=== PATIENT | female | born 1935 | race Caucasian/White ===

== ENCOUNTER → 2018-03-21 | Outpatient (CLI) | payer MEDICARE ==
[~2018-03-21] MED LIST: ALLOPURINOL100 MG PO; AMLODIPINE BESY10 MG PO; ATENOLOL50 MG PO; Aspirin PO; CENTRUM SILVER1 EAC1; DAILY VITAMIN1 EAC3 PO; ECOTRIN325 MG PO; FISH OIL + VIT1 EACH PO; FUROSEMIDE40 MG PO; GLIMEPIRIDE2 MG PO; I-CAPS AREDS S1 EACH; ICAPS TABLET1 EACH PO; ISOSORBIDE MONO30 MG PO; ISOSORBIDE MONO60 M1 PO; KRILL OIL500 MG PO; LIPITOR40 MG PO; MULTI-VITAMIN1 EACH PO; NORCO 5-325 TA1 EACH PO; SPIRONOLACTONE25 MG PO
--- NOTE | 2018-03-21 13:34 | Diagnostic Imaging Report ---
PROCEDURE: CT CHEST WITHOUT CONTRAST CT scan of the chest WITHOUT intravenous contrast, using standard protocol. TECHNIQUE: The chest was scanned utilizing a multidetector helical scanner from the apex to the level of the adrenal glands. No IV contrast was administered because per physician request). Coronal and sagittal multiplanar reformations were obtained. Total DLP: 520.42 COMPARISON: [facility], CT, CT ABDOMEN/PELVIS WO, 11/11/2015, 10:05. [facility], CT, CT CHEST WO, 09/19/2017, 11:37. INDICATIONS: Multiple pulmonary nodules on prior examination. Follow up. FINDINGS: Lines/tubes: None. Lungs and Airways: A 9 mm noncalcified nodule in the posterior left lung base on image 92 series 3 is new since the prior examination. A 3.5 mm noncalcified nodule in the left upper lobe anteriorly on image 62 history also appears new. A posterior right lower lobe noncalcified nodule previously measuring 1.2 x 1.2 cm on image 52 series 3 currently measures 1.1 x 1.2 cm on image 55 series 3, stable. Previous described bilateral subcentimeter pulmonary nodules are stable. Right middle lobe and lingular subsegmental atelectasis versus scarring. Pleura: The pleural spaces are clear. Heart and mediastinum: 2.1 cm low attenuation nodule in the left lobe of the thyroid. Other prominent mediastinal lymph nodes appear stable. The main pulmonary artery measures 3.8 cm, enlarged. Multivessel coronary artery calcifications.. Soft tissues: Normal. Abdomen: Limited views of the upper abdomen show a large low attenuation mass spanning segments 4A and IVb, measuring approximately 11 x 8.7 cm on image 90 series 2; it contains foci of calcification. It previously measured 8.5 x 7.3 cm on image 84 series 2. Atherosclerotic calcifications of the abdominal aorta and visualized branches.. The adrenal glands are normal. Bones: Multilevel advanced degenerative disc disease and spondylosis of the imaged thoracolumbar spine. IMPRESSION: 1. Interval increase in size of the previously described hepatic mass not further characterized due to lack of contrast; it is highly concerning for malignant neoplasm. Recommend further evaluation with CT or MRI of abdomen without and with contrast liver mass protocol. 2. Two new pulmonary nodules in the left lung the largest measuring 9 mm; metastatic disease is within differential diagnosis. 3. Stable bilateral pulmonary nodules the largest measuring 1.2 cm in the right lower lobe. Flora Cano M.D. Dictated by: Flora Cano M.D. on 03/21/2018 at 13:37 Electronically approved by: Flora Cano M.D. on 03/21/2018 at 13:37
== END | disposition home or self-care (01) ==
LOC: CT 12:09
PROVIDERS: ATTEND Internal Medicine Pulmonary Disease
DX: J98.4 Other disorders of lung (principal); R91.8 Other nonspecific abnormal finding of lung field
CPT/HCPCS: 71250

== ENCOUNTER 2018-11-29 07:58 | Inpatient (IN) | payer MEDICARE ==
[~2018-11-29] VITALS: Ht 165.1 cm; Wt 78.0 kg
--- OUTSIDE RECORDS SUMMARY | 2018-11-29 08:03 | XMS REPORT ---
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 Allergies, Adverse Reactions, Alerts This patient has no known allergies or adverse reactions. Medications This patient has no known medications. Results Test Description Test Time Test Comments Text Results Atomic Results Result Comments CT CHEST WO 2018-03-21 13:37:00 [place] [address] Patient Name: KENDALL RYAN MR #: [id number] : 1935 Age/Sex: 82/F Req #: [id number] [facility] Physician: Ordered by: SHELLIE CONNOLLY MD Report #: [id number] Location: CT Room/Bed: Procedure: [id number] CT/CT CHEST WO Exam Date: 03/21/18 Exam Time: 1235 REPORT STATUS: Signed PROCEDURE: CT CHEST WITHOUT CONTRAST CT scan of the chest WITHOUT intravenous contrast, using standard protocol. TECHNIQUE: The chest was scanned utilizing a multidetector helical scanner from the apex to the level of the adrenal glands. No IV contrast was administered because per physician request). Coronal and sagittal multiplanar reformations were obtained. Total DLP: 520.42 COMPARISON: [facility], CT, CT ABDOMEN/PELVIS WO, 11/11/2015, 10:05. [facility], CT, CT CHEST WO, 09/19/2017, 11:37. INDICATIONS: Multiple pulmonary nodules on prior examination. Follow up. FINDINGS: Lines/tubes: None. Lungs and Airways: A 9 mm noncalcified nodule in the posterior left lung base on image 92 series 3 is new since the prior examination. A 3.5 mm noncalcified nodule in the left upper lobe anteriorly on image 62 history also appears new. A posterior right lower lobe noncalcified nodule previously measuring 1.2 x 1.2 cm on image 52 series 3 currently measures 1.1 x 1.2 cm on image 55 series 3, stable. Previous described bilateral subcentimeter pulmonary nodules are stable. Right middle lobe and lingular subsegmental atelectasis versus scarring. Pleura: The pleural spaces are clear. Heart and mediastinum: 2.1 cm low attenuation nodule in the left lobe of the thyroid. Other prominent mediastinal lymph nodes appear stable. The main pulmonary artery measures 3.8 cm, enlarged. Multivessel coronary artery calcifications.. Soft tissues: Normal. Abdomen: Limited views of the upper abdomen show a large low attenuation mass spanning segments 4A and IVb, measuring approximately 11 x 8.7 cm on image 90 series 2; it contains foci of calcification. It previously measured 8.5 x 7.3 cm on image 84 series 2. Atherosclerotic calcifications of the abdominal aorta and visualized branches.. The adrenal glands are normal. Bones: Multilevel advanced degenerative disc disease and spondylosis of the imaged thoracolumbar spine. IMPRESSION: 1. Interval increase in size of the previously described hepatic mass not further characterized due to lack of contrast; it is highly concerning for malignant neoplasm. Recommend further evaluation with CT or MRI of abdomen without and with contrast liver mass protocol. 2. Two new pulmonary nodules in the left lung the largest measuring 9 mm; metastatic disease is within differential diagnosis. 3. Stable bilateral pulmonary nodules the largest measuring 1.2 cm in the right lower lobe. Flora Tatum M.D. Dictated by: Flora Tatum M.D. on 03/21/2018 at 13:37 Electronically approved by: Flora Tatum M.D. on 03/21/2018 at 13:37 Dictated By: PATRIA TATUM MD, MD [id number] Transcribed By: SHARI on 03/21/181336 COPY TO: SHELLIE CONNOLLY MD CT CHEST WO [place] [address] Patient Name: KENDALL RYAN MR #: [id number] : 1935 Age/Sex: 82/F Req #: [id number] Adm Physician: Ordered by: SHELLIE CONNOLLY MD Report #: [id number] Location: CT Room/Bed: Procedure: [id number] CT/CT CHEST WO Exam Date: 09/19/17 Exam Time: 1140 REPORT STATUS: Signed PROCEDURE: CT CHEST WITHOUT CONTRAST CT scan of the chest WITHOUT intravenous contrast, using standard protocol. TECHNIQUE: The chest was scanned utilizing a multidetector helical scanner from the apex to the level of the adrenal glands. No IV contrast was administered because of pulmonary nodule protocol. Coronal and sagittal multiplanar reformations were obtained. DLP: 289.4 mGy-cm COMPARISON: Chest CT 10/31/2010, chest radiograph 06/25/2017 INDICATIONS: LUNG NODULES FINDINGS: Lines/tubes: None. Lungs and Airways: Scattered pulmonary nodules from chest CT 10/31/2010, including (on series 3): * Right upper lobe 4 mm nodule present image 38), stable * Right upper lobe 3 mm nodule (image 38), stable * Right lower lobe 1.2 cm pulmonary nodule (image 51), previously 1 cm. The nodule cannot be from the adjacent pulmonary artery and vein, although non-enhancing on the prior CT. * Left upper lobe 5 mm nodule (image 16), stable * Left upper lobe 6 mm nodule (image 46), stable * Lingular 6 mm nodule (image 50), stable * Lingular 5 mm nodule (image 55), stable * Left lower lobe 4 mm nodule (image 69), stable * Left lower lobe 5 mm nodule (image 70), stable No focal pulmonary consolidations. Airways are patent. Pleura: The pleural spaces are clear. Heart and mediastinum: A 1.9 cm hypoattenuating lesion in the left thyroid gland, new from 10/31/2010. Borderline enlarged right paratracheal lymph node measures 1 cm (image 18). No significant hilar or axillary lymphadenopathy is seen. The heart and pericardium are within normal limits. Three-vessel coronary artery atherosclerotic calcifications. Main pulmonary artery measures 3.6 cm in diameter, enlarged which can be seen with pulmonary hypertension. Ascending aorta measures 3.9 cm. Diffuse atherosclerotic calcifications are present. Soft tissues: Normal. Abdomen: A new hypoattenuating 7.5 cm lesion in segments IV/ VIII contains central calcifications. Cholecystectomy clips. Stable 1.4 cm portal caval lymph node. The adrenal glands are normal. Bones: The visualized bony thorax is within normal limits. IMPRESSION: 1. Slightly increased size of a right lower lobe pulmonary nodule from 1 cm to 1.2 cm since 2010. This corresponds to the nodule noted on recent chest radiograph. Additional scattered pulmonary nodules are stable. 2. New right hepatic 7.5 cm lesion is incompletely evaluated. Recommend abdominal MRI without and with contrast (liver mass protocol) for further evaluation. 3. New 1.9 cm nodule in the left thyroid gland Which can be further evaluated with dedicated thyroid ultrasound. 4. Enlarged pulmonary artery suggestive of portal hypertension. Dictated by: Stefani Canales on 09/19/2017 at 12:40 Electronically approved by: Mario Castillo M.D. on 09/19/2017 at 12:40 Dictated By: MARIO CASTILLO MD 1240 Transcribed By: SHARI on 09/19/17 1240 COPY TO: SHELLIE CONNOLLY MD CHEST 2 VIEWS [place] [address] Patient Name: KENDALL RYAN MR #: [id number] : 1935 Age/Sex: 81/F Req #: [id number] Adm Physician: Ordered by: SHELLIE CONNOLLY MD Report #: [id number] Location: [facility] Room/Bed: Procedure: [id number] DX/CHEST 2 VIEWS Exam Date: 06/25/17 Exam Time: 1200 REPORT STATUS: Signed PROCEDURE: Frontal and lateral views of the chest. COMPARISON: Chest x-ray 05/01/2017. [address] chest 10/31/2010 INDICATIONS: LUNG NODULE CHECK UP FINDINGS: Lines/tubes: None. Lungs: The lungs are well inflated. 1.5 cm nodule in the right midlung is grossly unchanged. There is no evidence of pneumonia or pulmonary edema. Pleura: There is no pleural effusion or pneumothorax. Heart and mediastinum: The heart and the mediastinum are normal. Atherosclerotic ulcerations and the aorta is unchanged. Bones: No acute bony abnormality. IMPRESSION: 1.5 cm right midlung nodule, likely in the superior segment of the right lower lobe. Recommend CT chest with contrast for further evaluation. Dictated by: Allie Monique M.D. on 06/25/2017 at 12:23 Electronically approved by: Allie Monique M.D. on 06/25/2017 at 12:23 Dictated By: ALLIE MONIQUE MD 1223 Transcribed By: SHARI on 06/25/17 1223 COPY TO: SHELLIE CONNOLLY MD
[2018-11-29] MEDS ORDERED: SODIUM CHLORIDE 0.9% 1000ML 1,000 ML IV STA (08:15)
--- NOTE | 2018-11-29 08:22 | NUR ---
SPOKE WITH CAREGIVER/SON. HE WILL CALL US BACK WITH INFO ON ZOFRAN/TRAZADONE/HYDROMORPHONE/LORAZEPAM/OXYCODONE
[2018-11-29 08:38] LABS: BASOPHILS % 0.3 % (0.0-1.0); EOSINOPHILS % 0.1 % (0.0-6.0); HEMATOCRIT 42.1 % (34.2-44.1); HEMOGLOBIN 13.8 g/dL (12.0-16.0); LYMPHOCYTES # (AUTO) 1.2 (1.0-3.2); MEAN CORPUSCULAR HEMOGLOBIN 29.2 pg (28-32); MEAN CORPUSCULAR HGB CONC 32.8 g/dL (31-35); MEAN CORPUSCULAR VOLUME 89.2 fL (81-99); MONOCYTES # (AUTO) 0.9 (0.2-0.8); MONOCYTES % 7.9 % (4.4-11.3); NEUTROPHILS # (AUTO) 9.6 (2.1-6.9); NEUTROPHILS % 81.1 % (38.7-80.0); PLATELET COUNT 194 x10e3/uL (140-360); RED BLOOD COUNT 4.72 x10e6/uL (3.6-5.1); RED CELL DISTRIBUTION WIDTH 14.7 % (11.7-14.4)
[2018-11-29 08:50] LABS: INR 1.06; PROTHROMBIN TIME 14.8 seconds (11.9-14.5)
[2018-11-29 08:51] LABS: PARTIAL THROMBOPLASTIN TIME 28.8 seconds (23.8-35.5)
[2018-11-29 09:00] LABS: ALBUMIN 3.6 g/dL (3.5-5.0); ALBUMIN/GLOBULIN RATIO 0.9 (0.8-2.0); ANION GAP 16.2 mmol/L (8-16); CALCIUM 10.5 mg/dL (8.4-10.2); CREATININE, SERUM 1.45 mg/dL (0.57-1.11); POTASSIUM 3.2 mmol/L (3.5-5.1)
[2018-11-29] MEDS ORDERED: HYDROMORPHONE 2MG/ML 2 MG/ML ML IV NR (09:00)
[2018-11-29] MEDS ORDERED: ONDANSETRON HCL INJ 2MG/ML 2ML 2 MG/ML VIAL IV NR (09:00)
[2018-11-29 09:07] LABS: CREATINE KINASE MB 1.5 ng/mL (0-5.0)
--- NOTE | 2018-11-29 10:00 | Diagnostic Imaging Report ---
EXAMINATION: CHEST SINGLE (NOT PORTABLE) INDICATION: Suspect pneumonia. COMPARISON: CT chest on 03/21/2018. Chest radiograph 06/25/2017. FINDINGS: TUBES and LINES: None. LUNGS: Low lung volumes. There is linear opacity in the right midlung zone. Rounded opacity projects over the right midlung. Other nodules noted on prior chest CT are not well seen by radiograph. Mild patchy bibasilar opacities. Mild central vascular congestion. No evidence of pulmonary edema. PLEURA: No pleural effusion or pneumothorax. HEART AND MEDIASTINUM: Cardiac silhouette is unremarkable. Tortuous thoracic aorta. Atherosclerotic calcifications of the aorta. BONES AND SOFT TISSUES: No acute osseous abnormality. UPPER ABDOMEN: No free air under the diaphragm. IMPRESSION: Low lung volumes with scattered subsegmental atelectasis. No specific evidence of pneumonia. Rounded opacity projecting over the right midlung, corresponding to pulmonary nodule present on CT chest from 03/21/2018. Note that findings from prior chest CT raised the possibility of metastatic disease. Follow-up imaging per Oncology protocol is suggested. Signed by: Dr. Pio Plaza MD on 11/29/2018 9:56 AM
--- NOTE | 2018-11-29 10:08 | Diagnostic Imaging Report ---
Exam: Right knee radiographs - 3 views; Right hip radiographs - 2 views; AP radiograph of the pelvis- 1 view. History: Status post fall. Comparison: None. Findings: Right hip and pelvis: Possible bony irregularity overlying the lateral aspect of the right femoral head. Limited evaluation due to overlying pannus. Bony alignment is unremarkable. Moderate degenerative changes of the right hip. AP radiograph of the pelvis demonstrates moderate degenerative changes of the left hip, bilateral sacroiliac joints and pubic symphysis. Partially seen degenerative changes in the lower lumbar spine. Atherosclerotic vascular calcifications. Postsurgical changes project over the left hemipelvis. Postsurgical changes of the pelvis. Right knee: Status post right total knee arthroplasty. No evidence of acute fracture or malalignment. The hardware appears intact. Small suprapatellar joint effusion. Atherosclerotic vascular calcifications. Impression: Possible cortical irregularity of the right femoral head, with limited evaluation due to overlying pannus. Non-displaced fracture is possible. CT is suggested for further evaluation. Status post right total knee arthroplasty with intact hardware. Small suprapatellar joint effusion. Signed by: Dr. Pio Plaza MD on 11/29/2018 10:04 AM
--- NOTE | 2018-11-29 10:13 | Diagnostic Imaging Report ---
CT BRAIN WO HISTORY: Altered mental status, falls, liver CA COMPARISON: None. TECHNIQUE: Noncontrast axial scans were obtained from skull base to the vertex. Coronal and sagittal reconstructions obtained from the axial data. One or more of the following dose reduction techniques were used: Automated exposure control, adjustment of the mA and/or kV according to patient size, and/or utilization of iterative reconstruction technique. DISCUSSION: Scalp/Skull: Unremarkable. Brain sulci: Mildly prominent. Ventricles: Compensatory dilatation. Extra-axial spaces: No masses or fluid collections. Carotid siphon and vertebral artery calcifications are present. Parenchyma: Mild bilateral deep white matter hypodensity is likely chronic microvascular ischemic change. Incidental 9 mm pineal cyst is present. Otherwise, no masses, hemorrhage, or large vascular territory acute infarct. Dural sinuses: No abnormal densities. Sellar/Suprasellar region: Intact. Skull base: Intact. Incidental findings: Both ocular lenses are thinned. Minimal scattered paranasal sinus mucosal thickening is present. Mild to moderate bilateral temporomandibular joint degenerative changes are associated with mild periarticular calcifications. 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 IMPRESSION: 1. No acute intracranial abnormalities. 2. Mild supratentorial chronic microvascular ischemic change. Mild generalized cerebral volume loss. 3. Incidental 9 mm pineal cyst. Signed by: Dr. Itz Guthrie M.D. on 11/29/2018 10:10 AM
[2018-11-29 10:33] LABS: COLOR,URINE YELLOW (YELLOW)
[2018-11-29 10:34] LABS: BILIRUBIN,URINE NEGATIVE (NEGATIVE); CLARITY,URINE HAZY (CLEAR); KETONES,URINE NEGATIVE (NEGATIVE); LEUKOCYTE ESTERASE ,URINE 1+ (NEGATIVE); NITRITE,URINE NEGATIVE (NEGATIVE); PROTEIN,URINE DIPSTICK NEGATIVE (NEGATIVE); URINE UROBILINOGEN 0.2 mg/dL (0.2 - 1)
[2018-11-29 10:36] LABS: BACTERIA,URINE FEW /HPF; EPITHELIAL CELLS,URINE FEW /LPF; RBC,URINE 0-5 /HPF (0-5); WBC,URINE (MAN) 21-50 /HPF (0-5)
--- NOTE | 2018-11-29 10:53 | NUR ---
SPOKE WITH HOSPICE [facility]IN [facility], UPDATED ON THE CURRENT PLAN OF CARE AND WILL NOTIFY HOSPICE NURSE WHEN PATIENT'S IS DONE DISPOSTION BY DR NGUYEN.
[2018-11-29] MEDS ORDERED: CEFTRIAXONE SOD 1 GM/NS 50 ML 50 ML IV ONE (11:15)
--- NOTE | 2018-11-29 11:41 | Diagnostic Imaging Report ---
EXAM: CT RIGHT HIP WITHOUT CONTRAST INDICATION: Possible fracture on right hip radiograph. COMPARISON: Right hip radiograph 11/29/2018. TECHNIQUE: Right hip was scanned utilizing a multidetector helical scanner from the right mid iliac bone to the mid femur without administration of IV contrast. Coronal and sagittal reformations were obtained. Dose modulation, iterative reconstruction, and/or weight based adjustment of the mA/kV was utilized to reduce the radiation dose to as low as reasonably achievable. IV CONTRAST: None. ORAL CONTRAST: Water RADIATION DOSE: Total DLP: 231.6 mGy*cm Estimated effective dose: (DLP x 0.015 x size factor) mSv COMPLICATIONS: None FINDINGS: There is a minimally displaced subcapital/transcervical fracture of the right femoral neck. There is mild comminution (coronal series 601 image 42). There is possible fracture extension into the femoral head on series 501, image 32. No definite intra-articular extension. The femoral acetabular alignment is maintained. There is surrounding soft tissue edema and hematoma along the right posterior lateral thigh/gluteal region. There are atherosclerotic vascular calcifications. IMPRESSION: Minimally displaced subcapital/transcervical fracture of the right femoral neck with possible extension to the femoral head. No definite intra-articular extension. No evidence of hip dislocation. Signed by: Dr. Pio Plaza MD on 11/29/2018 11:38 AM
--- NOTE | 2018-11-29 11:42 | NUR ---
DR NGUYEN AT BEDSIDE FOR RE-EVAL AND DISCUSSING THE CURRENT PLAN OF CARE WITH PAITENT AND FAMILY,VERBALIZED UNDERSTANDING. NO SIGNS OF ACUTE DISTRESS NOTED AT THIS TIME.
--- NOTE | 2018-11-29 11:47 | NUR ---
NOTIFIED EVIN, [facility] WITH [facility], NOTIFIED PATIENT TO BE ADMITTED FOR UTI AND RIGHT HIP FRACTURE. HOSPICE NURSE STATES SHE SHE WILL NOTIFY HOSPICE DOCTOR AND THE DOCTOR WILL DECIDE IF HOSPICE NEEDS TO BE REVOKED.
[2018-11-29] MEDS ORDERED: SODIUM CHLORIDE FLUSH 10 ML SYR INJ PRN (12:15)
[2018-11-29 13:25] VITALS: BP 120/64
--- NOTE | 2018-11-29 13:30 | NUR ---
Received patient from ER, alert to self, and some confusion, by bed side and provided assessment information. Patient with S/P fall at home,has been on hospice due to liver cancer and sustained a non-displaced right throcanteric hip fx, patient medicated with pain upon arriving the floor and Sanchez's traction applied to right leg. VSS, call light within reach, bed alarms in place and consults to Dr. Toledo called. Will monitor patient at this time
[2018-11-29] MEDS: ONDANSETRON HCL INJ 2MG/ML 2ML 2 MG/ML VIAL IV PRN (13:52)
[2018-11-29] MEDS: HYDROMORPHONE 2MG/ML 2 MG/ML ML IV PRN ×3 (13:52→21:41)
[2018-11-29] MEDS: INSULIN REGULAR, HUMAN 100 UNIT/1 ML 3ML VIAL SQ SCH ×2 (16:30→21:00)
[2018-11-29 17:18] VITALS: BP 108/55
--- NOTE | 2018-11-29 17:56 | NUR ---
Patient in bed and SCD pumps in place, Sanchez's traction in place, pains well managed, call light within reach, VSS, safety maintained, will monitor, no adverse events at this time
--- NOTE | 2018-11-29 18:03 | NUR ---
Second call to Dr. Toledo and left a message regarding consult.
--- NOTE | 2018-11-29 19:00 | NUR ---
Report received and rounds completed, no complaints or concerns at this time. 5 lb Sanchez's traction in correct position.
--- NOTE | 2018-11-29 20:44 | NUR ---
CALLED AND SPOKE WITH THIS PATIENT'S SON WHO IS THE POA FOR HIS MOTHER REGARDING HER CODE STATUS. IT WAS DISCUSSED IN CHANGE OF SHIFT REPORT THAT THE PATIENT WAS ON HOSPICE AT HOME. THE PATIENT'S SON MR. DIETER RYAN STATED "MOM HAS LIVER CANCER AND SHE REFUSED CHEMOTHERAPY WITH RADIATION THERAPY AT [facility]. SHE WANTS TO BE A DNR AND I WILL BRING THE PAPER WORK TOMORROW MORNING. SPOKE WITH DR MEJIA REGARDING THE CONVERSATION WITH THE PATIENT'S SON, ORDER RECEIVED TO CHANGE THE PATIENT CODE STATUS.
[2018-11-29 21:08] VITALS: BP 131/66
[2018-11-29] MEDS: POTASSIUM CHLORIDE 20 MEQ TAB CR PO STA (21:41)
--- NOTE | 2018-11-29 22:31 | NUR ---
PATIENT POTASSIUM RESULT IS 3.2, ATTEMPTED SEVERAL TIMES TO ADMINISTER HER POTASSIUM TAB BUT SHE REFUSED AND STATED "WE ARE TRYING TO KILL HER." SHE'S CONFUSED AND NOT WANTING TO TAKE HER MEDICATION. CALL AND SPOKE WITH HER SON REGARDING HER POTASSIUM RESULT AND HER REFUSAL TO TAKE THE MEDICATION, HER SON STATED "I WILL BE THERE IN ABOUT 15MINUTES."
--- NOTE | 2018-11-29 22:45 | NUR ---
Son Tylor here at bedside, explaining importance of medication. Patient continues to refuse potassium and states " they are trying to kill me" Education reinforced on importance of potassium. Patient also refusing SCD to LLE, education provided on importance of SCD to prevent a blood clot in leg. Blood sugar at 2100 82, patient refusing to eat or drink anything. Son remains at bedside and will attempt to encourage patient.
[2018-11-30] VITALS (8 sets, daily range): BP systolic 117–161; BP diastolic 62–72
[2018-11-30] MEDS: POTASSIUM CHLORIDE 20 MEQ TAB CR PO STA (00:15)
--- NOTE | 2018-11-30 01:30 | NUR ---
5 lb Sanchez's traction and boot in correct position. Son at bedside. No complains or concerns at this time. Will continue to monitor.
[2018-11-30] MEDS: HYDROMORPHONE 2MG/ML 2 MG/ML ML IV PRN ×4 (01:35→19:54)
--- NOTE | 2018-11-30 05:06 | NUR ---
ASSISTED PATIENT WITH ADLS, REPOSITION FOR COMFORT. PATIENT C/O PAIN TO THE RIGHT LEG WITH PAIN SCORE #7, MEDICATED WITH DILAUDID ORDERED. CALL LIGHT WITHIN EASY REACH, PATIENT'S SON AT THE BEDSIDE, THEY WERE INSTRUCTED TO CALL FOR ASSISTANCE NEEDED.
[2018-11-30 06:06] LABS: BASOPHILS % 0.5 % (0.0-1.0); EOSINOPHILS % 0.2 % (0.0-6.0); HEMOGLOBIN 13.5 g/dL (12.0-16.0); LYMPHOCYTES % 12.5 % (18.0-39.1); MEAN CORPUSCULAR HEMOGLOBIN 29.4 pg (28-32); MEAN CORPUSCULAR HGB CONC 32.1 g/dL (31-35); MEAN CORPUSCULAR VOLUME 91.5 fL (81-99); MONOCYTES # (AUTO) 0.7 (0.2-0.8); MONOCYTES % 9.1 % (4.4-11.3); NEUTROPHILS # (AUTO) 6.2 (2.1-6.9); NEUTROPHILS % 77.2 % (38.7-80.0); PLATELET COUNT 144 x10e3/uL (140-360); RED BLOOD COUNT 4.59 x10e6/uL (3.6-5.1); RED CELL DISTRIBUTION WIDTH 14.9 % (11.7-14.4)
[2018-11-30 06:18] LABS: INR 1.15; PROTHROMBIN TIME 15.7 seconds (11.9-14.5)
[2018-11-30 06:19] LABS: PARTIAL THROMBOPLASTIN TIME 29.9 seconds (23.8-35.5)
[2018-11-30 06:28] LABS: ANION GAP 14.3 mmol/L (8-16); CALCIUM 10.1 mg/dL (8.4-10.2); CREATININE, SERUM 1.13 mg/dL (0.57-1.11); POTASSIUM 4.3 mmol/L (3.5-5.1)
--- NOTE | 2018-11-30 07:10 | NUR ---
Walking rounds done and report received. Patient is resting in bed in NAD noted. 5# bucks traction to right lower extremity.She is A&Ox1-2. Patient instructed to call for assistance as needed. Bed in lowest position, locked and call stanley within reach.
[2018-11-30] MEDS: INSULIN REGULAR, HUMAN 100 UNIT/1 ML 3ML VIAL SQ SCH ×4 (07:30→21:00)
[2018-11-30] MEDS: SPIRONOLACTONE 25 MG TAB PO SCH (08:48)
[2018-11-30] MEDS: GLIMEPIRIDE 2 MG TAB PO SCH (08:48)
[2018-11-30] MEDS: ISOSORBIDE MONONITRATE 30 MG TAB CR PO SCH (08:48)
[2018-11-30] MEDS: CEFTRIAXONE SOD 1 GM/NS 50 ML 50 ML IV SCH (08:48)
[2018-11-30] MEDS: AMLODIPINE BESYLATE 10 MG TAB PO SCH (08:50)
[2018-11-30] MEDS: ALLOPURINOL 100 MG TAB PO SCH (08:50)
[2018-11-30] MEDS: ATENOLOL 50 MG TAB PO SCH ×2 (08:50→17:11)
[2018-11-30] MEDS: FUROSEMIDE 40 MG TAB PO SCH (08:50)
--- NOTE | 2018-11-30 10:00 | NUR ---
Patient continues to be intermittently confused. Son at the bedside and is emotionally upset that mom does not make sense at times. Per son Jim, he can not handle mom and needs to go home. Patient reoriented to surroundings. Call stanley within reach.
[2018-11-30] MEDS: HYDROCODONE/APAP 5MG-325MG TAB PO PRN ×2 (10:14→18:35)
--- NOTE | 2018-11-30 13:15 | NUR ---
Son Tylor called per patient request. She was upset stating her sons don't love her anymore. Patient is momentarily content after speaking to her son. Call stanley within reach. Bed in lowest position and call stanley within reach.
--- NOTE | 2018-11-30 16:54 | History and Physical ---
IDENTIFYING DATA: An 83-year-old female comes in status post fall and acute confusion. HISTORY OF PRESENTING ILLNESS: This is Ms. Arelis Garcia with a history of hypertension and hyperlipidemia with a history of liver cancer, was usual state of health until the patient started to have acute confusion with trouble concentration and confusion. Patient also had a fall that was sustained yesterday, on the day of admission, and patient had difficulty walking after that. Came into the emergency room, was found to have a fracture and also acute AMS and also urinary tract infection. Patient is admitted for the same. PAST MEDICAL HISTORY: History of diabetes, history of hypertension, history of hyperlipidemia, history of liver cancer, history of gout, and history of diabetes mellitus. MEDICATIONS: She takes at home are allopurinol 100 mg daily, amlodipine 10 mg daily, atorvastatin 40 mg daily, atenolol 50 mg twice a day, glimepiride 2 mg daily, isosorbide mononitrate 30 mg daily, and Aldactone 25 mg daily. SURGICAL HISTORY: Positive for appendectomy, cholecystectomy, left knee surgery, and hysterectomy. Patient also has left knee joint replacement and macular degeneration in bilateral eyes. REVIEW OF SYSTEMS: Negative for chest pain. No shortness of breath. Positive for pain in the hip. No nausea, vomiting, or diarrhea. No constipation or rectal bleeding. Positive for dysuria. No hematochezia. No hematemesis. No blurry vision or diplopia. SOCIAL HISTORY: No EtOH. No IV drug abuse. History of smoking in the past. Recently lost her on the ; the patient is grieving from that. Lives with children, especially her son. ALLERGIES: PENICILLIN AND MORPHINE. PHYSICAL EXAMINATION: GENERAL: The patient is alert and oriented today. VITAL SIGNS: Temperature is 97.6, blood pressure is 161/72, respirations of 18, pulse of 69, pulse oximetry of 99%. HEENT: Normocephalic, atraumatic. The patient is edentulous. CVS: S1, S2 regular. ABDOMEN: Nontender, nondistended. EXTREMITIES: No clubbing, no cyanosis, and no edema. The patient's right leg, to traction at this time, positive for tenderness in the right hip joint. LABORATORY VALUES: The patient's white count was 21,250, leukocyte esterase positive. Chemistries, sodium of 137, potassium of 3.2, BUN of 19, creatinine of 1.45. Total bilirubin is 1.3, calcium of 10.5, AST was 58, ALT was 18, ammonia was 32. Glucose 82 and 89. Today's laboratory values are pending. IMAGING STUDIES: Hip CT shows mildly displaced transverse fracture of the right femoral neck with possible extension of femoral head. Brain CT shows no acute intracranial abnormalities, mild supratentorial chronic microvascular changes, incidental 9 mm pineal cyst. Chest x-ray shows rounded opacity projecting over the right mid lung corresponding to pulmonary nodule seen on CT from 03/24, possibility of metastatic disease. Knee x-ray shows status post total knee arthroplasty with intact hardware. ASSESSMENT: 1. Status post fall with a right femoral fracture. Ortho is on consult. 2. Acute mental status changes, possibly secondary to urosepsis. We will continue the patient on antibiotic. Currently, the patient is on Rocephin. We will continue the same and follow with the urine culture. 3. History of fall. The patient will need surgery and physical therapy or intermediate facility as an outpatient. 4. Hypertension. Continue on CV medication. 5. Hyperlipidemia. Continue on hyperlipidemic agents. 6. Possible liver cancer with lung metastasis. We will discuss the option with family and patient when Dr. Tadeo comes back. Further recommendation per clinical course. We will continue to monitor the patient. We will restart all her home medications. MD KATHRIN KoehlerJ/MODL /[id number]
--- NOTE | 2018-11-30 17:19 | Consultation ---
DATE OF CONSULTATION: 11/30/2018 CHIEF COMPLAINT: Right hip pain. HISTORY OF PRESENT ILLNESS: This patient is an 83-year-old female, who suffered a fall early yesterday. The patient cannot tell me exactly how she had a fall. She states she think she was getting up out of bed to do something. The patient demonstrates some mild confusion and has trouble answering questions on occasion. History of present illness is obtained not only from the patient, but her 2 sons. Prior to the fall, she used a cane to get around. The patient has a significant history of metastatic cancer and is currently on hospice care. She has reportedly lost roughly 60 pounds or so over the past 7 or 8 months since her diagnosis in April of last year. The patient recently lost her and states that she is currently grieving as well. PAST MEDICAL HISTORY: See H and P. SOCIAL HISTORY: The patient denies smoking or ETOH. PHYSICAL EXAMINATION: GENERAL: This is a pleasant female, who is in no apparent distress. She has some mild confusion when answering questions. She is awake, alert, and oriented to name, date of , and year. She is able to tell me a little bit of her history of liver cancer. EXTREMITIES: Her right lower extremity is in Sanchez's traction. This is neutrally rotated and there is no shortening. She has pain with attempted passive range of motion in the right leg. Distal motor and sensory exams are normal. IMAGING: X-rays of the right hip were obtained and show a mild cortical defect in the femoral neck. CT scan of the pelvis confirms the diagnosis of a nondisplaced femoral neck fracture. ASSESSMENT AND PLAN: This is an 83-year-old female with a significant history of metastatic cancer and on hospice, who has a right femoral neck fracture. The findings and options were discussed at length with the patient and her 2 sons. The option of surgery versus comfort care was discussed at length. The patient states that she has no interest in surgery. She states that she feels she might have just a few months left to live. She states she just wants to be home and left alone. After discussion with the sons, we plan on comfort care measures only. She could potentially resume her hospice care at home. She would need to be nonweightbearing on the right leg. They can mobilize her and work on wheelchair transfers. Thank you for the consultation. Dictated by Felix Pearce PA-C MD SOFYA Taylor/FANI /[id number]
--- NOTE | 2018-11-30 19:55 | NUR ---
PATIENT C/O PAIN TO THE RIGHT SIDE OF HER ABDOMEN WITH PAIN SCORE #9, MEDICATED WITH DILAUDID ORDERED. SARGENT'S TRACTION TO THE RIGHT LEG, INTERMITTENT CONFUSION NOTED WHILE TALKING WITH THE PATIENT. BED ALARM ON, CALL LIGHT WITHIN EASY REACH, THE PATIENT'S SON IS AT THE BEDSIDE.
--- NOTE | 2018-11-30 22:42 | NUR ---
PATIENT ADJUSTED AND REPOSITION ON HER SIDE, SHE PULLOUT HER IV WITH TIP INTACT. AT THIS TIME SHE'S REFUSING TO HAVE ANOTHER IV STARTED. SHE WAS ADMITTED FOR CONFUSION, WILL ATTEMPT TO START AN IV ONCE THE PATIENT IS CALM. CALL LIGHT WITHIN EASY REACH, HER SON IS AT THE BEDSIDE.
[2018-12-01] VITALS (7 sets, daily range): BP systolic 112–171; BP diastolic 56–72
[2018-12-01] MEDS: HYDROCODONE/APAP 5MG-325MG TAB PO PRN ×4 (00:56→19:40)
--- NOTE | 2018-12-01 01:00 | NUR ---
PATIENT REPOSITION FOR COMFORT, SHE'S MEDICATED WITH [place]CO 1TAB FOR PAIN TO THE ABDOMEN. CALL LIGHT WITHIN EASY REACH, WILL MONITOR.
--- NOTE | 2018-12-01 04:20 | NUR ---
PATIENT IS SOUNDLY ASLEEP, NO RESPIRATORY DISTRESS OBSERVED.
--- NOTE | 2018-12-01 05:30 | NUR ---
DR. PARKINSON SAW THE PATIENT, HE DISCUSSED EXTENSIVELY WITH THE PATIENT'S SON THE PLAN OF TREATMENT.
[2018-12-01 06:28] LABS: BASOPHILS % 0.3 % (0.0-1.0); EOSINOPHILS # (AUTO) 0.1 (0.0-0.4); HEMATOCRIT 42.9 % (34.2-44.1); HEMOGLOBIN 14.1 g/dL (12.0-16.0); LYMPHOCYTES # (AUTO) 1.3 (1.0-3.2); LYMPHOCYTES % 13.8 % (18.0-39.1); MEAN CORPUSCULAR HEMOGLOBIN 29.2 pg (28-32); MEAN CORPUSCULAR HGB CONC 32.9 g/dL (31-35); MEAN CORPUSCULAR VOLUME 88.8 fL (81-99); MONOCYTES # (AUTO) 0.8 (0.2-0.8); MONOCYTES % 9.1 % (4.4-11.3); NEUTROPHILS # (AUTO) 6.9 (2.1-6.9); NEUTROPHILS % 75.1 % (38.7-80.0); PLATELET COUNT 178 x10e3/uL (140-360); RED BLOOD COUNT 4.83 x10e6/uL (3.6-5.1)
[2018-12-01 06:51] LABS: ALBUMIN 3.2 g/dL (3.5-5.0); ALBUMIN/GLOBULIN RATIO 0.7 (0.8-2.0); ANION GAP 13.8 mmol/L (8-16); CALCIUM 10.1 mg/dL (8.4-10.2); CREATININE, SERUM 0.92 mg/dL (0.57-1.11); POTASSIUM 3.8 mmol/L (3.5-5.1)
[2018-12-01] MEDS: INSULIN REGULAR, HUMAN 100 UNIT/1 ML 3ML VIAL SQ SCH ×4 (07:30→21:00)
[2018-12-01] MEDS: SPIRONOLACTONE 25 MG TAB PO SCH (09:27)
[2018-12-01] MEDS: CEFTRIAXONE SOD 1 GM/NS 50 ML 50 ML IV SCH (09:27)
--- NOTE | 2018-12-01 09:27 | NUR ---
assessment complete no distress noted, updated on poc vocied understanding, denies pain at this time, marte to bsd with yellow urine noted, l wrist 20g no ss of infiltration noted,no other complaints voiced call light in reach will continue to monitor
[2018-12-01] MEDS: ISOSORBIDE MONONITRATE 30 MG TAB CR PO SCH (09:28)
[2018-12-01] MEDS: GLIMEPIRIDE 2 MG TAB PO SCH (09:28)
[2018-12-01] MEDS: AMLODIPINE BESYLATE 10 MG TAB PO SCH (09:29)
[2018-12-01] MEDS: FUROSEMIDE 40 MG TAB PO SCH (09:29)
[2018-12-01] MEDS: ATENOLOL 50 MG TAB PO SCH ×2 (09:29→16:39)
[2018-12-01] MEDS: ALLOPURINOL 100 MG TAB PO SCH (09:30)
--- NOTE | 2018-12-01 10:00 | NUR ---
EDUCATED ABOUT IMM, SIGNED, FILED IN CHART, WITH COPY LEFT WITH FAMILY AT BEDSIDE.
[2018-12-01] MEDS ORDERED: VANCOMYCIN 1GM/NS 250 ML 250 ML IV ONE (12:30)
--- NOTE | 2018-12-01 16:02 | NUR ---
CASE MANAGEMENT ASSESSMENT Sustainable Design Coordinator to bedside to discuss plan of care with patient/family. CM/SW role and care transitions discussed. Anticipated discharge plan discussed along with duration of care. CM/SW discussed patients right to make decisions in care. CM/SW work hours given. Patient lives: with her two sons Admit/Transfer: thru ED Hospital/ER visits since last admit: stated has been years since last admit. Last ED visit here was Jun 2017 POA/Emergency contact: son Tylor Garcia (also POA) [phone] Current/Previous Home Health: none currently; used one previously but does not remember the name PCP/Follow-up Care: Dr. Tadeo; advised pt to follow up with her MD within 7 days of discharge or as instructed Current/Previous DME: son states they have all the equipment needed at home; walker, cane, shower bench, wheelchair. pt currently on service with [facility]. Linda Raymundo RN with hospice at bedside states they will order a hospital bed for pt. Medications (referring to index hospitalization or the first time you were in the hospital) a. Were changes made in your medications when you were in the hospital on [date of index hospitalization]? n/a b. Did you understand the changes? n/a c. Were you able to obtain your new medications right away? n/a d. Were you able to take your medications like the doctor wanted you to? n/a e. Did the hospital give you an accurate, easy to understand list of medications when you left? n/a Scale of 1-10 how comfortable does patient feel with disease management in outpatient settin Other Services: Hospice with [facility] [phone] (office), Linda Raymundo manager commercial sales [phone] Employment Status: retired Areas of Concerns: fall, UTI, fracture Referral Needs: home health Education Needs: safety, medical management IMM/MEDELLIN given and signed (if applicable): IMM was given this AM Goal for discharge: pt and son both states that MD talked to them regarding possible rehab after surgery but their goal is to go home with home health. Pt has family with her at all times. Choice letter was signed for [facility] and [facility]. Signed choice form placed in chart. Copy to pt's son. CM/SW left business card at the bedside with contact information. Name and number was also written on the patients whiteboard. Patient verbalized understanding of discussion. CM will follow-up with ongoing discharge and transition of care needs.
[2018-12-01] MEDS ORDERED: FENTANYL CITRATE/PF 100MCG/2 ML INJ ONE (19:28)
--- NOTE | 2018-12-01 19:41 | NUR ---
PATIENT C/O PAIN TO THE ABDOMEN AND RIGHT LEG WITH PAIN SCORE $9, MEDICATED WITH NORCO 1TAB ORDERED. NO RESPIRATORY DISTRESS OBSERVED, SARGENT'S TRACTION REMAINS INTACT TO THE RIGHT RIGHT LEG. CALL LIGHT WITHIN EASY REACH, PATIENT'S SON IS AT THE BEDSIDE.
[2018-12-01] MEDS: HYDROMORPHONE 2MG/ML 2 MG/ML ML IV PRN (22:16)
--- NOTE | 2018-12-01 23:50 | NUR ---
PATIENT IS SOUNDLY ASLEEP, NO RESPIRATORY DISTRESS OBSERVED. BED ALARM ON, CALL LIGHT WITHIN EASY REACH.
[2018-12-02] VITALS: BP_SYST 142; BP_DIAS 61; BP_DIAS 68
[2018-12-02] MEDS: HYDROMORPHONE 2MG/ML 2 MG/ML ML IV PRN ×2 (02:51→07:51)
--- NOTE | 2018-12-02 02:52 | NUR ---
PATIENT MEDICATED WITH DILAUDID ORDERED FOR PAIN, PLAN IS TO ASSIST THE PATIENT WITH HIBICLENS BATH 40MINUTIES AFTER THE PAIN MEDICATION HAS BECOME EFFECTIVE.
--- NOTE | 2018-12-02 05:15 | NUR ---
HIBICLENS BATH GIVEN TO THE PATIENT, LARGE BRUISE OBSERVED TO THE RIGHT BREAST AND THE RIGHT HIP. SKIN PROTECTANT APPLIED TO THE SACRUM AREA, PATIENT REPOSITION IN BED FOR COMFORT. SHE'S REMINDED TO MAINTAIN NPO STATUS FOR SURGERY TODAY. BED ALARM ON, CALL LIGHT WITHIN EASY REACH.
[2018-12-02] MEDS: DEXTROSE 50% SYRINGE 50 ML IV PRN ×2 (07:30→11:58)
[2018-12-02] MEDS: INSULIN REGULAR, HUMAN 100 UNIT/1 ML 3ML VIAL SQ SCH ×4 (07:30→20:33)
--- NOTE | 2018-12-02 07:55 | NUR ---
PATIENT BLOOD SUGAR THIS MORNING WAS 59, NO S/S OF HYPOGLYCEMIA NOTED. SHE'S ON A NPO STATUS FOR SURGICAL INTERVENTION TODAY, D50 ADMINISTERED PER PROTOCOL. ONCOMING NURSE IS AWARE THAT THIS PATIENT HAS RECEIVED D50 AND WILL FOLLOW UP WITH BLOOD SUGAR REASSESSMENT.
[2018-12-02 07:59] VITALS: BP 137/65
[2018-12-02] MEDS: ONDANSETRON HCL INJ 2MG/ML 2ML 2 MG/ML VIAL IV PRN (08:12)
--- NOTE | 2018-12-02 08:14 | NUR ---
Received patient this morning and in some moderate to severe pain and mediated as per orders, in bed, [place] traction in place, VSS, will be going for procedure today, son in the room with patient, will monitor, consent in the sera and signed.
[2018-12-02] MEDS: CEFTRIAXONE SOD 1 GM/NS 50 ML 50 ML IV SCH (08:38)
[2018-12-02] MEDS: ALLOPURINOL 100 MG TAB PO SCH (09:00)
[2018-12-02] MEDS: ISOSORBIDE MONONITRATE 30 MG TAB CR PO SCH (09:00)
[2018-12-02] MEDS: GLIMEPIRIDE 2 MG TAB PO SCH (09:00)
[2018-12-02] MEDS: FUROSEMIDE 40 MG TAB PO SCH (09:00)
[2018-12-02] MEDS: AMLODIPINE BESYLATE 10 MG TAB PO SCH (09:00)
[2018-12-02] MEDS: SPIRONOLACTONE 25 MG TAB PO SCH (09:00)
[2018-12-02] MEDS: NITROFURANTOIN MACROCRYSTALS 100 MG CAP PO SCH ×2 (09:00→16:10)
[2018-12-02] MEDS: ATENOLOL 50 MG TAB PO SCH ×2 (09:00→16:10)
[2018-12-02 10:03] VITALS: BP 137/65
--- NOTE | 2018-12-02 11:25 | NUR ---
Patient picked up for procedure at this time
[2018-12-02] MEDS ORDERED: VANCOMYCIN HCL 1 GM VIAL ONE (11:27)
[2018-12-02] MEDS ORDERED: BACITRACIN 50,000 UNIT VIAL ONE (11:28)
[2018-12-02] MEDS ORDERED: SODIUM CHLORIDE 0.9% 500ML 500 ML ONE (11:28)
[2018-12-02] MEDS ORDERED: TRANEXAMIC ACID 1,000 MG/10 ML ML ONE (11:28)
--- NOTE | 2018-12-02 11:40 | NUR ---
Blood sugar check and FS-51, Dextrose 5% given IV and sent to OR for procedure.
[2018-12-02] MEDS ORDERED: ROPIVACAINE 246.25 MG, EPINEPHRINE HCL 1:1000 1ML 0.5 MG, CLONIDINE HCL 0.08 MG, KETORO... INJ ONE ×5 (11:45)
[2018-12-02] MEDS ORDERED: VANCOMYCIN 1GM/NS 250 ML 250 ML IV ONE (12:00)
[2018-12-02] MEDS: SODIUM CHLORIDE 0.9% 1000ML 1,000 ML IV SCH ×2 (12:57→23:08)
[2018-12-02] MEDS ORDERED: KETOROLAC TROMETHAMINE 30 MG/ML VIAL IV PRN (13:00)
[2018-12-02] MEDS ORDERED: DOCUSATE SODIUM 100 MG CAP PO PRN (13:00)
[2018-12-02] MEDS ORDERED: ACETAMINOPHEN 650 MG SUPP PR PRN (13:00)
[2018-12-02] MEDS ORDERED: ONDANSETRON HCL INJ 2MG/ML 2ML 2 MG/ML VIAL IV PRN (13:00)
[2018-12-02] MEDS ORDERED: DIPHENHYDRAMINE HCL INJ 50 MG/ML VIAL IM/IV PRN (13:00)
[2018-12-02] MEDS ORDERED: HYDROCODONE/APAP 5MG-325MG TAB PO PRN (13:00)
[2018-12-02] MEDS ORDERED: VANCOMYCIN 1GM/NS 250 ML 250 ML IV SCH (13:00)
[2018-12-02] MEDS ORDERED: PROMETHAZINE HCL (IM) 25 MG/ML VIAL INJ PRN (13:00)
[2018-12-02] MEDS ORDERED: ZOLPIDEM TARTRATE 5 MG TAB PO PRN (13:00)
--- NOTE | 2018-12-02 14:38 | NUR ---
Received patient and VSS, afebrile, no chills, no c/o pains, s/p right prerna arthroplasty, incision intact, no drainage, air mattress, foot pumps, IV line in place running, on O2 2L NC, bed alarms in place, will monitor
--- NOTE | 2018-12-02 14:44 | Diagnostic Imaging Report ---
Exam: Pelvis single frontal view History: Postop Comparison: None. Findings: See impression Impression: Single frontal view of the pelvis status post right hip replacement shows intact and appropriately positioned acetabular and femoral components. No periprosthetic displaced fractures. Expected subcutaneous and interstitial gas. Signed by: Dr. Dhruv You M.D. on 12/02/2018 2:41 PM
[2018-12-02] MEDS ORDERED: NEOSTIGMINE 5 MG/5ML SYR ONE (15:14)
[2018-12-02] MEDS ORDERED: DEXAMETHASONE SOD PHOS INJ 4 MG/ML VIAL ONE (15:14)
[2018-12-02] MEDS ORDERED: PROPOFOL IV EMULSION 10 MG/ML 20 ML VIAL ONE (15:14)
[2018-12-02] MEDS ORDERED: ONDANSETRON HCL INJ 2MG/ML 2ML 2 MG/ML VIAL ONE (15:14)
[2018-12-02] MEDS ORDERED: SEVOFLURANE INHAL SOLN 250 ML PEN BTL ONE (15:14)
[2018-12-02] MEDS ORDERED: ROCURONIUM BROMIDE 10 MG/ML 5ML VIAL ONE (15:14)
[2018-12-02] MEDS ORDERED: LIDOCAINE HCL 2% LOCAL INJ 5 ML SDV VIAL INJ ONE (15:14)
[2018-12-02] MEDS ORDERED: GLYCOPYRROLATE INJ 1MG/ 5 ML SYR ONE (15:14)
[2018-12-02] MEDS ORDERED: EPHEDRINE SULFATE INJ 50 MG/10 ML SYR ONE (15:14)
--- NOTE | 2018-12-02 15:18 | NUR ---
Patient alert and responsive, BP- 113/68, P64, Temp-97.6, K1Ycbm-92%RA, pupils equal bilaterally, slow reaction to light but responds to prompts stating "I want to go home". New IV to RFA 20G and IV fluids running, will monitor.
[2018-12-02] MEDS: ASPIRIN 325 MG TAB PO SCH (15:59)
[2018-12-02] MEDS: CELECOXIB 100 MG CAP PO SCH (15:59)
[2018-12-02 16:06] VITALS: BP 117/57
--- NOTE | 2018-12-02 16:08 | NUR ---
Patient OOB with PT and bed side stands completed, cooperation limited by cognition, back to bed and will monitor
[2018-12-02] MEDS: ACETAMINOPHEN 1000 MG/100 ML IV SCH ×2 (18:03→23:53)
--- NOTE | 2018-12-02 18:31 | NUR ---
Patient tolerated full liquid diet and no N/V and advanced to ADA regular diet.
--- NOTE | 2018-12-02 19:17 | NUR ---
WALKING ROUNDS PERFORMED, RECEIVED PT LAYING SEMI FOWLERS IN BED, AAOX2, RR EVEN AND NON-LABORED, O2 BY NC AT 2L. NO S/SX OF DISTRESS NOTED. DRESSING TO (R) HIP NOTED TO BE CDI. LEFT PT LAYING SEMI FOWLERS IN BED, BED IN LOW LOCKED POSITION, SIDE RAILS UPX2, CALL LIGHT AND PHONE WITHIN REACH. FAMILY AT BEDSIDE.
[2018-12-02 20:00] VITALS: BP 103/46
[2018-12-02 20:49] VITALS: BP 103/46
[2018-12-02] MEDS: VANCOMYCIN 1GM/NS 250 ML 250 ML IV SCH (20:49)
--- NOTE | 2018-12-02 22:19 | Operative Report ---
DATE OF PROCEDURE: 12/02/2018 SURGEON: Dhruv Toledo MD COUPON REDEMPTION CLERK: Felix Pearce PA-C. PREOPERATIVE DIAGNOSIS: Right femoral neck fracture. POSTOPERATIVE DIAGNOSIS: Right femoral neck fracture. PROCEDURE: Right hip hemiarthroplasty. INDICATIONS: The patient is an 83-year-old lady, who has terminal metastatic cancer of her liver. She has been on hospice since last April. Few days ago, she fell and sustained a fracture of her right femoral neck. The findings and options were discussed with the patient. She initially felt that she could not tolerate and did not want to go through with surgery. She changed her mind a day or two later. We now planned on a right hip hemiarthroplasty. The risks and benefits were explained at length. She states she understands and wishes to proceed. DESCRIPTION OF PROCEDURE: The patient was brought to the operating room and placed under general anesthetic. She was positioned in the left lateral decubitus position. She received prophylactic antibiotics in the holding area. Her right hip was prepped and draped in a sterile manner. A preoperative time-out was performed. A approach was made to the right hip. The hip was brought out into external rotation and flexion. The anterior abductor muscles were released from the proximal femur. A capsulotomy was performed. An oscillating saw was used to resect the remainder of the femoral neck. Corkscrew was then used to remove the femoral head. The femoral head was of size 48. A box cutting osteotome and taper pin reamer were used to establish entry into the femoral canal. The [employer] Taperloc broaches were impacted. A size #13 stem had good canal fill. The trial implants were removed. The hip was thoroughly irrigated with sterile saline. A mixture of polymyxin and diluted vancomycin was used to spray in the wound as well. The implants were seated into the femoral canal. A standard 48-mm head and standard neck were seated. A final reduction was performed. The anterior capsulotomy was repaired with interrupted #2 Ethibond. The abductor muscles were repaired to the greater trochanter with intraosseous #2 Ethibond. The tensor fascia was closed with #2 Ethibond. The skin was closed with subcuticular Vicryl, Mastisol, and Steri-Strips. She was placed into a sterile bandage and returned to the supine position. She was extubated and transported to the recovery room in stable condition. Blood loss was approximately 50 mL. All needle and sponge counts were correct. Dhruv Toledo MD DR/FANI /[id number]
[2018-12-03] VITALS (7 sets, daily range): BP systolic 97–144; BP diastolic 48–68
[2018-12-03] MEDS: KETOROLAC TROMETHAMINE 30 MG/ML VIAL IV PRN ×2 (00:25→17:07)
[2018-12-03] MEDS ORDERED: ALPRAZOLAM0.25 MG PO (01:19)
[2018-12-03] MEDS: HYDROMORPHONE 2MG/ML 2 MG/ML ML IV PRN ×2 (01:59→11:49)
[2018-12-03] MEDS: SODIUM CHLORIDE 0.9% 1000ML 1,000 ML IV SCH ×2 (02:13→18:57)
--- NOTE | 2018-12-03 04:05 | NUR ---
WHILE PERFORMING ROUNDS PT FOUND TO HAVE BROKEN MOREJON IN HALF, URINE DRAINING TO BED. PT ALSO NOTED TO BE HOLDING IV IN HAND WITH BLOOD ON GOWN AND DABBING AT (R) WRIST WITH TISSUE WHERE IV WAS LOCATED AND WAS WRAPPED WITH COBAN. PT REPORTS THE MOREJON BROKE WHILE IT WAS RUBBING ON HER LEG AND THE IV JUST FELL OUT. CLEANSED (R) WRIST AND APPLIED DRESSING. X2 ATTEMPTS MADE TO START IV TO (L) FA. BOTH ATTEMPTS NON-SUCCESSFUL. LARGE HEMATOMA NOTED TO (L) FA UNDER FIRST ATTEMPT DRESSING. PRESSURE IMMEDIATELY APPLIED AND HELD FOR 5 MINUTES, ADDITIONAL 2X2 APPLIED AND SECURED WITH COBAN DRESSING FOR CONTINUED PRESSURE. MD PARKINSON MADE AWARE. NO NEW ORDERS AT THIS TIME. PT REFUSING FURTHER ATTEMPTS AT IV FROM THIS NURSE. ER CALLED FOR NURSE TO START IV. PT FURTHER REQUESTING TO TALK TO HARDBOARD COATING MACHINE OPERATOR, PT REPORTS "IM AFRAID, IM BLEEDING OUT AND IM GOING TO " HARDBOARD COATING MACHINE OPERATOR JOSSIE HERNANDEZ MADE AWARE, HARDBOARD COATING MACHINE OPERATOR WILL BE DOWN TO TALK TO PT. MD PARKINSON IN TO SEE PT AT THIS TIME.
--- NOTE | 2018-12-03 05:20 | NUR ---
PARVEEN WADDELL IN TO START IV X1 ATTEMPT MADE. NON-SUCCESSFUL. PRESSURE APPLIED.
--- NOTE | 2018-12-03 05:45 | NUR ---
Michel HERNANDEZ, RN CONSTRUCTION SECRETARY IN TO SEE PT AT THIS TIME CONCERNING PT REPORTS OF SHE WAS GOING TO AND NO LONGER WANTED THIS NURSE TO TAKE CARE OF HER.
--- NOTE | 2018-12-03 06:10 | NUR ---
IV STARTED TO (R) AC 20G BY Lanie POST LVN. IVF CONNECTED BY Michel HERNANDEZ RN TO RUN AT 100 ML/HR. ICE CHIPS AND MOUTH SWABS PROVIDED TO PT.
[2018-12-03] MEDS: ACETAMINOPHEN 1000 MG/100 ML IV SCH ×2 (06:25→12:00)
--- NOTE | 2018-12-03 06:50 | NUR ---
SPOKE WITH MD PARKINSON CONCERNING PT REPORTS OF RECENTLY PASSING AWAY AND FEELING DEPRESSED AND ANXIOUS. NEW ORDERS RECEIVED.
[2018-12-03 06:56] LABS: HEMATOCRIT 38.4 % (34.2-44.1); HEMOGLOBIN 12.5 g/dL (12.0-16.0)
[2018-12-03] MEDS: INSULIN REGULAR, HUMAN 100 UNIT/1 ML 3ML VIAL SQ SCH ×4 (07:30→21:00)
[2018-12-03] MEDS: VANCOMYCIN 1GM/NS 250 ML 250 ML IV SCH (09:00)
[2018-12-03] MEDS: GLIMEPIRIDE 2 MG TAB PO SCH (09:00)
[2018-12-03] MEDS: SPIRONOLACTONE 25 MG TAB PO SCH (09:12)
[2018-12-03] MEDS: CEFTRIAXONE SOD 1 GM/NS 50 ML 50 ML IV SCH (09:12)
[2018-12-03] MEDS: CITALOPRAM HYDROBROMIDE 20 MG TAB PO SCH (09:13)
[2018-12-03] MEDS: CELECOXIB 100 MG CAP PO SCH ×2 (09:13→17:07)
[2018-12-03] MEDS: ASPIRIN 325 MG TAB PO SCH ×2 (09:13→17:07)
[2018-12-03] MEDS: FUROSEMIDE 40 MG TAB PO SCH (09:13)
[2018-12-03] MEDS: ISOSORBIDE MONONITRATE 30 MG TAB CR PO SCH (09:13)
[2018-12-03] MEDS: ALLOPURINOL 100 MG TAB PO SCH (09:13)
[2018-12-03] MEDS: AMLODIPINE BESYLATE 10 MG TAB PO SCH (09:13)
[2018-12-03] MEDS: NITROFURANTOIN MACROCRYSTALS 100 MG CAP PO SCH ×2 (09:13→17:07)
[2018-12-03] MEDS: ATENOLOL 50 MG TAB PO SCH ×2 (09:14→17:00)
--- NOTE | 2018-12-03 09:40 | NUR ---
ASSESSMENT: Spiritual distress Pt grieving 's recent . Pt's family at bedside. Pt states her of 60+years "2-3 weeks ago." Pt states her family is very supportive. Pt states she is "taking things day by day." Intervention: Provided empathic pastoral listening. Facilitated identification of emotions. Provided information on how to reach emergency preparedness coordinator, if needed. Outcome: Pt & family expressed appreciation for visit. KITTY FARAH Av Specialist Spiritual Care Department O: [phone] Pager: [phone] ([phone] number calling from)
[2018-12-03] MEDS: HYDROCODONE/APAP 7.5MG-325MG 1 EA TAB PO PRN ×2 (11:44→17:07)
[2018-12-03] MEDS ORDERED: ACETAMINOPHEN 1000 MG/100 ML IV PRN (13:00)
--- NOTE | 2018-12-03 13:28 | NUR ---
EDUCATED ABOUT IMM, SIGNED, FILED IN CHART, WITH COPY LEFT WITH FAMILY AT BEDSIDE.
--- NOTE | 2018-12-03 13:42 | NUR ---
WOUND CARE CONSULTATION - INITIAL EVALUATION Patient admitted from home S/P fall with hip pain. Acute confusion, UTI. HX: Liver CA, DM, HTN, Hyperlipidemia, Gout, Appendectomy, Cholecystectomy, Left Knee SX, Hysterectomy. PATIENT VISIT: - Underwent surgical intervention with Dr. Dhruv Toledo and had total hip replacement. 12/02/18 - Surgical dressing still in place. Deferred first dressing to Dr. Toledo. Area CDI. - Wound Care Consulted for Right Forearm Skin Tear WBC9.14 HGB12.5 HCT38.4 NEUT%75.1 GLU86 ALB3.2 Erik Score 14 Alternating Pressure Air Mattress in Place. Moderate PUP Active No Pressure Ulcers Identified. Heels Intact Patient states she ambulated today with therapy. Able to move freely in bed with minimal discomfort after taking pain medication. Son at bedside- excellent historian. IMPRESSION: Right forearm Skin Tear- Partial thickness- Present on Admission from fall at home. RECOMMENDATION: 1. Right Forearm - Skin Tear - POA - - Cleanse wound with NS and 4x4 gauze daily. - Apply Xeroform Single layer and Cover with 4x4 gauze and secure with Kerlix daily. 2. Continue Moderate Pup - Bilateral Heel Protectors while in bed - Turn and reposition q2H - Continue Alternating Pressure Mattress - Sacral area Allevyn foam daily and PRN Soiling. 3. Skin tear precautions. 4. Shear friction Precautions. Thank you for consulting with Wound Care. Addendum: 12/03/18 at 1353 by Kishor Garcia RN Amended: Links added.
--- NOTE | 2018-12-03 13:47 | NUR ---
Patient alert and responsive, medicated for pain and OOB and ambulating hallway with PT, steady gate with contact guard and using walker.
[2018-12-03] MEDS: ALPRAZOLAM 0.25 MG TAB PO SCH ×2 (14:00→22:10)
--- NOTE | 2018-12-03 14:34 | NUR ---
Patient OOB and ambulated, sat on chair for about 30 mins and assisted to bathroom and voided post removal of Christine cath. Back in bed at this time.
[2018-12-04] VITALS (7 sets, daily range): BP systolic 105–140; BP diastolic 52–78
[2018-12-04] MEDS: HYDROCODONE/APAP 7.5MG-325MG 1 EA TAB PO PRN ×2 (02:45→15:43)
[2018-12-04] MEDS: SODIUM CHLORIDE 0.9% 1000ML 1,000 ML IV SCH ×2 (04:57→14:57)
[2018-12-04 05:46] LABS: HEMOGLOBIN 10.9 g/dL (12.0-16.0)
[2018-12-04] MEDS: ALPRAZOLAM 0.25 MG TAB PO SCH ×3 (05:48→22:00)
[2018-12-04] MEDS: INSULIN REGULAR, HUMAN 100 UNIT/1 ML 3ML VIAL SQ SCH ×4 (07:30→21:00)
--- NOTE | 2018-12-04 07:35 | NUR ---
Received patient and walking rounds complete. Patient resting in bed at this time, no signs of distress. Call light in reach, will continue to monitor.
[2018-12-04] MEDS: SPIRONOLACTONE 25 MG TAB PO SCH (08:28)
[2018-12-04] MEDS: CELECOXIB 100 MG CAP PO SCH ×2 (08:28→17:15)
[2018-12-04] MEDS: NITROFURANTOIN MACROCRYSTALS 100 MG CAP PO SCH ×2 (08:28→17:15)
[2018-12-04] MEDS: ASPIRIN 325 MG TAB PO SCH ×2 (08:28→17:15)
[2018-12-04] MEDS: GLIMEPIRIDE 2 MG TAB PO SCH (08:28)
[2018-12-04] MEDS: ISOSORBIDE MONONITRATE 30 MG TAB CR PO SCH (08:28)
[2018-12-04] MEDS: AMLODIPINE BESYLATE 10 MG TAB PO SCH (08:28)
[2018-12-04] MEDS: FUROSEMIDE 40 MG TAB PO SCH (08:28)
[2018-12-04] MEDS: CEFTRIAXONE SOD 1 GM/NS 50 ML 50 ML IV SCH (08:28)
[2018-12-04] MEDS: CITALOPRAM HYDROBROMIDE 20 MG TAB PO SCH (08:28)
[2018-12-04] MEDS: ATENOLOL 50 MG TAB PO SCH ×2 (08:29→17:15)
[2018-12-04] MEDS: ALLOPURINOL 100 MG TAB PO SCH (08:29)
--- NOTE | 2018-12-04 09:30 | NUR ---
Patient A/O X3, even respirations on 2LNC. Right FA skin tear and bruising on left arm. Patient is ambulatory with assistance. No edema, bowel sounds active. Patient is passing gas, but no bowel movements. Right AC 20 gauge IV SL. Son at bedside, plan for d/c tomorrow. Call light in reach, will continue to monitor.
--- NOTE | 2018-12-04 13:23 | NUR ---
Wound care performed. Cleansed skin tear with NS, placed Xeroform single layer and covered with 4x4 gauze and wrapped with Kerlix.
[2018-12-04] MEDS: DEXTROSE 50% SYRINGE 50 ML IV PRN (22:48)
--- NOTE | 2018-12-04 23:26 | NUR ---
PT BLOOD GLUCOSE READING 45. PT IS AAO, NO S/S OF HYPOGLYCEMIA. SNACKS PROVIDED. RECHECK BLOOD GLUCOSE READING 53. D50 ADMINISTERED PER PROTOCOL. RECHECKED BLOOD GLUCOSE NOW READING 97.
[2018-12-05] VITALS: BP 121/63
[2018-12-05] MEDS: SODIUM CHLORIDE 0.9% 1000ML 1,000 ML IV SCH ×2 (00:57→10:57)
[2018-12-05 04:00] VITALS: BP 131/63
[2018-12-05] MEDS: ALPRAZOLAM 0.25 MG TAB PO SCH (06:00)
[2018-12-05] MEDS: INSULIN REGULAR, HUMAN 100 UNIT/1 ML 3ML VIAL SQ SCH ×2 (07:30→11:30)
[2018-12-05 08:38] VITALS: BP 159/74
[2018-12-05] MEDS: GLIMEPIRIDE 2 MG TAB PO SCH (08:59)
[2018-12-05] MEDS: ASPIRIN 325 MG TAB PO SCH (08:59)
[2018-12-05] MEDS: CELECOXIB 100 MG CAP PO SCH (08:59)
[2018-12-05] MEDS: CEFTRIAXONE SOD 1 GM/NS 50 ML 50 ML IV SCH (08:59)
[2018-12-05] MEDS: SPIRONOLACTONE 25 MG TAB PO SCH (08:59)
[2018-12-05] MEDS: NITROFURANTOIN MACROCRYSTALS 100 MG CAP PO SCH (09:00)
[2018-12-05] MEDS: ATENOLOL 50 MG TAB PO SCH (09:00)
[2018-12-05] MEDS: FUROSEMIDE 40 MG TAB PO SCH (09:00)
[2018-12-05] MEDS: ISOSORBIDE MONONITRATE 30 MG TAB CR PO SCH (09:00)
[2018-12-05] MEDS: CITALOPRAM HYDROBROMIDE 20 MG TAB PO SCH (09:00)
[2018-12-05] MEDS: AMLODIPINE BESYLATE 10 MG TAB PO SCH (09:00)
[2018-12-05] MEDS: ALLOPURINOL 100 MG TAB PO SCH (09:00)
[2018-12-05 09:09] VITALS: BP_SYST 101; BP_SYST 159; BP_DIAS 55; BP_DIAS 74
--- NOTE | 2018-12-05 09:11 | NUR ---
TOLERATED BREAKFAST, DENIES PAIN AT THIS TIME, CALL LIGHT WITHIN REACH
--- NOTE | 2018-12-05 11:03 | NUR ---
Received called from Lynn with intake at [facility]. She stated that they verified pt's insurance and are in network. CM faxed clinicals to [phone] / P [phone]
[2018-12-05 11:52] VITALS: BP 121/59
[2018-12-05] MEDS ORDERED: MACROBID 100 M100 MG (12:11)
--- NOTE | 2018-12-05 13:26 | NUR ---
Received phone call from Lynn at [facility]. She stated that they are unable to accept pt due to pt being on hospice. LISA called and spoke to pt's son and MPOA Tylor Jose [phone] and informed him. He stated that pt is "not coming off of hospice so she will just not get home health."
--- NOTE | 2018-12-06 04:26 | Discharge Summary ---
DISCHARGE DIAGNOSES: 1. Right hip fracture, status post fall, status post repair with hemiarthroplasty. 2. History of liver cancer, diabetes, hypertension, and gout. DISCHARGE MEDICATIONS: See discharge MAR. Follow up in 2 to 3 weeks with me as well as in [address] Toledo, Orthopedics. HISTORY OF PRESENT ILLNESS AND HOSPITAL COURSE: See hospital chart for details. The patient is an elderly lady cancer, who was in hospice but fell at home, was more confused and was brought in, found to have a right hip fracture as well as urinary tract infection that grew out Staph on her culture, which was sensitive to the Macrobid that she was discharged home with. Initially, the patient refused surgery, but after discussion, for palliative reasons, we decided to go ahead and have the surgery performed, which she did have done by Dr. Toledo without any complications. She did very well postoperatively. At the time of discharge, she was able to ambulate around 200 feet very well. Her confusion improved significantly and her son was with her at all time. They elected to take the patient back home under the care of hospice which was set up on the patient. Please see hospital chart for full details. MD MIK Fraser/FANI /[id number]
== END 2018-12-05 12:33 | disposition home health service (06) | DRG 469 ==
LOC: ER 07:58 → ERHOLD 12:43 → MED/SURG 12:57
PROVIDERS: ADMIT Internal Medicine; ATTEND Internal Medicine
PROC: 0SRR0JZ Replacement of Right Hip Joint, Femoral Surface with Synthetic Substitute, Open Approach (ICD-10-PCS; principal; 2018-12-02 12:08)
DX: S72.001A Fracture of unspecified part of neck of right femur, initial encounter for closed fracture (principal); G92 Toxic encephalopathy; C22.0 Liver cell carcinoma; C78.00 Secondary malignant neoplasm of unspecified lung; N39.0 Urinary tract infection, site not specified; E78.5 Hyperlipidemia, unspecified; E11.22 Type 2 diabetes mellitus with diabetic chronic kidney disease; I12.9 Hypertensive chronic kidney disease with stage 1 through stage 4 chronic kidney disease, or unspecified chronic kidney disease; N18.3 Chronic kidney disease, stage 3 (moderate); M10.9 Gout, unspecified; B95.7 Other staphylococcus as the cause of diseases classified elsewhere; H35.30 Unspecified macular degeneration; D64.9 Anemia, unspecified; W06.XXXA Fall from bed, initial encounter; Y92.003 Bedroom of unspecified non-institutional (private) residence as the place of occurrence of the external cause; Z87.891 Personal history of nicotine dependence; Z79.84 Long term (current) use of oral hypoglycemic drugs; Z88.5 Allergy status to narcotic agent; Z88.0 Allergy status to penicillin
CPT/HCPCS: 36415; 51700; 70450; 71045; 72170; 80048; 80053; 81001; 82140; 82550; 82553; 82948; 83735; 84484; 85014; 85018; 85025; 85610; 85730; 86850; 86900; 87086; 87186; 93005; 96374; 96375; 96376; 97139; 99284; C1713; J0171; J0696; J1100; J1200; J1885; J2001; J2405; J2795; J3370; J7030; J7040; J7799